=== PATIENT | female | born 1955 | race Asian ===

== ENCOUNTER 2019-05-12 07:26 | Emergency (ER) | payer OTHER ==
[~2019-05-12] VITALS: Ht 162.6 cm; Wt 76.2 kg
--- NOTE | 2019-05-12 07:42 | NUR ---
[id number], C/O LEFT ARM PAIN , ABREASION, CHEST, +AB, +SB, -KO. ON ROOM AIR, BREATHING EVENLY AND UNLABORED. CONNECTED TO THE MONITOR AND PULSE OX. WILL CONTINUE TO MONITOR ACCORDINGLY.
[2019-05-12 08:18] VITALS: BP 140/88
--- NOTE | 2019-05-12 08:19 | NUR ---
Patient discharged to home in stable condition. Written and verbal after care instructions given. Patient verbalizes understanding of instruction.
== END 2019-05-12 08:18 | disposition home or self-care (01) ==
LOC: ER 07:36
DX: R51 Headache (principal); R07.89 Other chest pain; M79.602 Pain in left arm; I10 Essential (primary) hypertension; F41.9 Anxiety disorder, unspecified; V49.59XA Passenger injured in collision with other motor vehicles in traffic accident, initial encounter; Y93.89 Activity, other specified; Y92.488 Other paved roadways as the place of occurrence of the external cause; Y99.8 Other external cause status